=== PATIENT | female | born 1970 | race Caucasian/White ===

== ENCOUNTER 2021-07-15 12:25 | Inpatient (IN) | payer OTHER ==
[~2021-07-15] VITALS: Ht 160 cm; Wt 129.4 kg
[~2021-07-15 12:25] MED LIST: ADVAIR HFA 115-28 GM INH; BACLOFEN 10MG T10 MG PO; ELAVIL50 MG PO; FLONASE ALLER15.8 ML; GABAPENTIN600 MG PO; GRALISE300 MG PO; HYDROCODON-ACE1 EAC6 PO; HYDROXYZINE HCL50 MG PO; LEVOXYL75 MCG PO; LIDOCAINE30 G1 TOP; MAPAP ARTHRITI650 MG PO; MIGRANOW KIT50 MG INH; MYRBETRIQ50 MG PO; NEURONTIN300 MG PO; PREDNISONE 20MG20 MG PO; PRILOSEC20 MG PO; PROZAC20 MG PO; SINGULAIR10 MG PO; SPIRIVA 18MCG18 MCG INH; TESSALON PERLE100 MG PO; TOPAMAX200 MG PO; VENTOLIN (2.5 MG/3 M INH; VENTOLIN HFA IN18 GM INH; VESICARE10 MG PO; VICODIN 10/3251 EACH PO; VITAMIN D1000 UNIT PO; ZOLMITRIPTAN5 MG PO
[2021-07-15 13:50] LABS: BASOPHIL 0.9 % (0-2); EOSINOPHIL 0 % (0-5); HCT 40.8 % (37.0-47.0); HGB 13.3 g/dl (12.5-16.0); LYMPHOCYTE 35.7 % (15-48); MCH 28.5 pg (25.0-31.0); MCHC 32.6 g/dL (32.0-36.0); MCV 87.4 fL (78.0-100.0); MONOCYTE 13.2 % (0-12); MPV 10.6 fL (6.0-9.5); NEUTROPHIL 49.8 % (41-80); NRBC 0; PLT 151 K/uL (150-400); RBC 4.67 M/uL (4.20-5.40); RDW 15.5 % (11.5-14.0); WBC 4.5 K/uL (4.0-10.5)
[2021-07-15 14:25] LABS: INFLUENZA A NAA NEGATIVE (NEGATIVE)
[2021-07-15 14:29] LABS: CORONAVIRUS 2019 SARS-COV-2 POSITIVE (NEGATIVE)
[2021-07-15 14:43] LABS: LACTIC ACID 1.3 mmol/L (0.4-1.9)
[2021-07-15 14:50] LABS: ALBUMIN 3.5 g/dL (3.4-5.0); BILIRUBIN - TOTAL 0.3 mg/dL (0.2-1.0); BUN/CREAT RATIO (CALC) 13.6 RATIO; CREATININE 1.18 mg/dL (0.51-0.95); GLOBULIN (CALCULATION) 4.1 g/dL; POTASSIUM 3.9 mmol/L (3.5-5.1); TOTAL PROTEIN 7.6 g/dL (6.4-8.2)
[2021-07-15 15:06] LABS: BILIRUBIN 1+ mg/dL (NEGATIVE); BLOOD NEGATIVE Ery/uL (NEGATIVE); CLARITY CLEAR (CLEAR); COLOR YELLOW (YELLOW); GLUCOSE (U) 2+ mg/dL (NORMAL); LEUKOCYTES NEGATIVE Leu/uL (NEGATIVE); NITRITE NEGATIVE (NEGATIVE); PROTEIN 1+ mg/dL (NEGATIVE); SPECIFIC GRAVITY >=1.030 (1.001-1.030)
[2021-07-15 15:24] LABS: AMPHETAMINES NEGATIVE (NEGATIVE); BARBITURATES NEGATIVE (NEGATIVE); ECSTASY (MDMA) NEGATIVE (NEGATIVE); MARIJUANA (THC) NEGATIVE (NEGATIVE); METHADONE NEGATIVE (NEGATIVE); OPIATES POSITIVE (NEGATIVE); OXYCODONE NEGATIVE (NEGATIVE)
[2021-07-15 15:33] LABS: BACTERIA TRACE; MUCOUS TRACE
[2021-07-15 15:34] LABS: GRANULAR CASTS TRACE
[2021-07-15 15:57] LABS: INR 1.01 (0.9-1.2); PROTHROMBIN TIME 12.7 SECONDS (11.8-13.4); PTT 34.7 SECONDS (24.4-34.7)
[2021-07-15] MEDS ORDERED: HYDROCODON-ACE1 EAC6 PO (16:09)
[2021-07-15] MEDS ORDERED: HYDROCODON-ACE1 EAC2 PO (16:32)
[2021-07-16] MEDS ORDERED: VICODIN 10/3251 EACH PO (01:28)
[2021-07-16] MEDS ORDERED: VISTARIL50 MG PO (01:29)
[2021-07-16] MEDS ORDERED: SYMBICORT 80-10.2 GM INH (01:32)
[2021-07-16] MEDS ORDERED: EFFEXOR XR150 MG PO (01:32)
[2021-07-16] MEDS ORDERED: LEVOXYL75 MCG PO (01:33)
[2021-07-16] MEDS ORDERED: BACLOFEN 20MG T20 MG PO (01:33)
[2021-07-16] MEDS ORDERED: METFORMIN HCL500 MG PO (01:34)
[2021-07-16] MEDS ORDERED: PRINIVIL10 MG PO (01:35)
[2021-07-16] MEDS ORDERED: METFORMIN HCL500 M3 PO (01:35)
[2021-07-16] MEDS ORDERED: AIMOVIG AU70 MG/1 ML SC (01:44)
[2021-07-16] MEDS ORDERED: STEGLATRO5 MG PO (01:44)
[2021-07-16] MEDS ORDERED: BUSPIRONE HCL10 MG PO (01:45)
[2021-07-16] MEDS ORDERED: ALLEGRA ALLERG180 MG PO (01:46)
[2021-07-16 06:26] LABS: BASOPHIL 0.2 % (0-2); EOSINOPHIL 0 % (0-5); HCT 40.7 % (37.0-47.0); HGB 13.3 g/dl (12.5-16.0); LYMPHOCYTE 46.8 % (15-48); MCH 28.1 pg (25.0-31.0); MCHC 32.7 g/dL (32.0-36.0); MCV 85.9 fL (78.0-100.0); MONOCYTE 8.9 % (0-12); MPV 10.7 fL (6.0-9.5); NEUTROPHIL 43.9 % (41-80); NRBC 0; PLT 149 K/uL (150-400); RBC 4.74 M/uL (4.20-5.40); RDW 15.2 % (11.5-14.0); WBC 5.9 K/uL (4.0-10.5)
[2021-07-16 07:01] LABS: BUN/CREAT RATIO (CALC) 11.5 RATIO; C-REACTIVE PROTEIN 4.6 mg/dL (<=0.90); CREATININE 0.96 mg/dL (0.51-0.95); FT4 (FREE T4) 1.1 ng/dL (0.76-1.46); POTASSIUM 3.8 mmol/L (3.5-5.1)
--- NOTE | 2021-07-17 13:51 | NUR ---
07/17/21 Ms. Diehl lives at home with her spouse. She uses a cane for ambulation. Ms. Diehl selected [facility] as 1st choice and [facility] as second choice for 02 needs. [facility] reports not to supply 02.
--- NOTE | 2021-07-18 10:04 | NUR ---
07/18/21 Ms. Diehl was discharged on 07/17 on room air. She did not want a rw to be ordered for her.
== END 2021-07-17 16:39 | disposition home or self-care (01) | DRG 177 ==
LOC: FER 12:25 → FMS 21:49
PROVIDERS: Emergency Medicine; Nurse Practitioner; Nurse Practitioner Family; ADMIT Internal Medicine
PROC: 8E0ZXY6 Isolation (ICD-10-PCS; 2021-07-15)
PROC: XW033E5 Introduction of Remdesivir Anti-infective into Peripheral Vein, Percutaneous Approach, New Technology Group 5 (ICD-10-PCS; principal; 2021-07-16)
DX: U07.1 COVID-19 (principal); J12.82 Pneumonia due to coronavirus disease 2019; G93.41 Metabolic encephalopathy; F05 Delirium due to known physiological condition; J44.0 Chronic obstructive pulmonary disease with (acute) lower respiratory infection; N17.9 Acute kidney failure, unspecified; E86.0 Dehydration; L40.9 Psoriasis, unspecified; R53.1 Weakness; W19.XXXA Unspecified fall, initial encounter; F41.9 Anxiety disorder, unspecified; G43.909 Migraine, unspecified, not intractable, without status migrainosus; K76.0 Fatty (change of) liver, not elsewhere classified; F32.A Depression, unspecified; I10 Essential (primary) hypertension; G47.33 Obstructive sleep apnea (adult) (pediatric); E11.9 Type 2 diabetes mellitus without complications; E03.9 Hypothyroidism, unspecified; Z87.440 Personal history of urinary (tract) infections; Z88.1 Allergy status to other antibiotic agents; Z88.2 Allergy status to sulfonamides; Z79.899 Other long term (current) drug therapy; Z90.49 Acquired absence of other specified parts of digestive tract; Z98.890 Other specified postprocedural states
CPT/HCPCS: 36415; 36600; 70450; 71046; 71275; 72125; 80048; 80053; 80305; 81001; 82140; 82728; 82803; 83605; 83615; 84145; 84439; 84443; 84484; 85025; 85379; 85610; 85730; 86140; 87040; 93005; 94010; 94640; 97162; 97166; 97530-GP; 97535; C9399; G0480; J1650; J2405; J3486; J7030; J7050; J8540; Q9967; U0002